=== PATIENT | female | born 2000 | race Caucasian/White ===

== ENCOUNTER 2019-12-17 13:18 | Emergency (ER) | payer MEDICAID, SELFPAY ==
[2019-12-17 13:40] VITALS: BP 119/82; PULSE 112; RESP 18; TEMP 37.3; O2SAT 98; BMI 37.8
--- NOTE | 2019-12-17 14:28 | ED_ITS ---
HPI - General: Chief complaint: OB/Uterine Contractions Stated complaint: UNKNOW WEEK PREG, BLEEDING URGE TO PUSH WHILE PEEI Time Seen by Provider: 12/17/19 14:15 History of Present Illness: HPI Narrative: 19-year-old female. Nurses notes reviewed labs were ordered based on her chief complaints and history provided to the nurse and went to the room to examine the patient she was no longer present on the left the emergency room. She did not tell myself or the nurse evidently that she was leaving nurse did not have an opportunity to provide her AMA paperwork or to tell me that she was leaving. Date of Last Menstrual Period: 09/06/19 [facility] ED PFSH: Social History Smoking and tobacco status: current every day smoker Female Reproductive History: Date of last menstrual period: 09/06/19 Course Vital Signs: Vital signs: Vital Signs Temperature 99.1 F 12/17/19 13:40 Pulse Rate 112 H 12/17/19 13:40 Respiratory Rate 18 12/17/19 13:40 Blood Pressure 119/82 12/17/19 13:40 Pulse Oximetry 98 12/17/19 13:40 Discharge Plan Discharge Patient Disposition: Left Without Being Seen Discharge Date/Time: 12/17/19 14:46 Coding Level of Care Code ED Yeast Cake Cutter for Marquita Beaulieu
== END 2019-12-17 14:46 | disposition left against medical advice (07) ==
LOC: ER 14:51
PROVIDERS: Emergency Provider Family Medicine; PCP Family Medicine
DX: N93.9 Abnormal uterine and vaginal bleeding, unspecified (principal); Z53.21 Procedure and treatment not carried out due to patient leaving prior to being seen by health care provider; F17.210 Nicotine dependence, cigarettes, uncomplicated
CPT/HCPCS: 12345; 99281

== ENCOUNTER 2020-05-11 22:25 | Inpatient (IN) | payer MEDICAID, SELFPAY ==
[2020-05-11 22:25] VITALS: BMI 40.4
[2020-05-11 22:48] VITALS: BP 138/91; PULSE 86
--- NOTE | 2020-05-11 23:07 | US_ITS ---
WS: [id number] US OB limited [id number] REASON FOR EXAM: vaginal bleeding FINDINGS: Limited ultrasound for vaginal bleeding. The placenta is posterior. No evidence of retroplacental hematoma. heart rate 126. Normal amount of amniotic fluid. EGA by femur length 34 weeks 1 day US/US OB limited [id number] IMPRESSION: No significant abnormality identified in the limited examination as above.
--- NOTE | 2020-05-11 23:08 | PC.NURSE ---
Ger with ultrasound called to come in at this time.
[2020-05-11 23:09] VITALS: BP 0/0
[2020-05-11 23:10] VITALS: BP 0/0
[2020-05-11 23:24] VITALS: BP 125/73; PULSE 76
--- NOTE | 2020-05-11 23:25 | PC.NURSE ---
Ger with ultrasound on unit
--- NOTE | 2020-05-11 23:25 | PC.NURSE ---
Dr. Hill at nurses station reviewing strip
[2020-05-11 23:29] LABS: Actim Prom Positive
--- NOTE | 2020-05-11 23:30 | PC.NURSE ---
Dr. Hill at bedside
[2020-05-11 23:36] VITALS: BMI 37.9
[2020-05-11 23:40] VITALS: BP 136/81; PULSE 77
[2020-05-11 23:55] VITALS: BP 138/74; PULSE 68
[2020-05-12] VITALS (36 sets, daily range): BP systolic 0–150; BP diastolic 0–93; PULSE 79–128; RESP 16–20; TEMP 36.8–37.2; O2SAT 80–100
[2020-05-12 00:04] LABS: Amphetamines Screen Urine Negative (Negative); Barbiturates Screen Urine Negative (Negative); Benzodiazepines Screen Urine Negative (Negative); Cocaine Screen Urine Negative (Negative); Opiate Screen Urine Negative (Negative); PCP Screen Urine Negative (Negative); THC Screen Urine Negative (Negative)
[2020-05-12] MEDS: lactated ringers 1,000 ML 999 ML IV (00:05)
--- NOTE | 2020-05-12 00:09 | P.HP_ITS ---
Providers/Chief Complaint Admitting Physician: Bradford Hill MD Primary Care Provider: Bradford Hill MD Chief Complaint: IUP CONTRACTIONS HPI PHOTOGRAPHIC LABORATORY TECHNICIAN History of Present Illness Suzi Dumont is a 20 year old female who is 4 para 3 with an EDC of 06/06/2020. She has had 3 previous sections and was scheduled for section later this month. However, she had intercourse earlier this evening and then began bleeding moderate amount at home around 9 PM. She came to [facility] labor and delivery was complained of bleeding and thinking that water may have been ruptured . Initial evaluation found her to have a little bit of blood but nothing significant but still having some significant pain. She was placed on the monitor and the heart tones have been pretty flat. A recheck found her to have moderate bleeding. [place] [employer] was unsuccessful secondary to the bleeding. Quick ultrasound demonstrated no o bvious abruption and no active bleeding. However there is minimal amniotic fluid with the OBDULIO of 4-5. There is very minimal cervix remaining. Is heart tones are poor with oligohydramnios and a grade 2-3 placenta with bleeding and previous history of section a decision is made made to proceed with section. There is been no fever and no other signs of COVID. She denies any exposure to anyone known to have code however, she has not been tested. We are testing at this time. Present Details : 4 Para: 3 Date of Last Menstrual Period: 09/06/19 Calculated Date of Delivery: 06/12/20 Gestational Age Based on Last Menstrual Period: 35 Review of Systems Const: Denies: fever(s), chills, body aches or diaphoresis Eyes: Denies: change in vision ENMT: Denies: throat pain Card: Denies: chest pain, palpitations or dyspnea on exertion Resp: Denies: dyspnea, productive cough or wheezing GI: Reports: abdominal pain (Some suprapubic pain and some suprapubic pain and back pain.) : Reports: pelvic pain (Suprapubic pain and back pain.); Denies: flank pain Musc: Reports: back pain Neuro: Denies: headache(s), weakness in extremities or sensory changes Psych: Reports: anxiety Medications/Allergies Allergies Allergy/AdvReac Type Severity Reaction Status Date / Time No Known Allergies Allergy Verified 12/17/19 13:44 PFSH PHOTOGRAPHIC LABORATORY TECHNICIAN PFSH: Social History Smoking and tobacco status: current every day smoker Vitals/I&O/Wt Last Vital Signs Pulse 68 05/11/20 23:55 BP 138/74 05/11/20 23:55 Weight last 48 hrs Weight 103.419 kg Physical Exam Const: GENERAL APPEARANCE: cooperative, anxious and well hydrated HENMT: COMMON NORMALS: atraumatic Resp: COMMON NORMALS: normal respiratory effort, No retractions and clear to auscultation bilaterally Cardio: COMMON NORMALS: regular rate and regular rhythm GI: COMMON NORMALS: Normal to inspection, nondistended, normoactive bowel adrian nds present and Soft to palpation; negative for non-tender (Suprapubic tenderness which is mild to moderate.) : OB/EXTERNAL & SPECULUM: Active bleeding present UTERUS PALPATION: Yes Uterus tender (Mild at time of initial examination.) Extremity: COMMON NORMALS: normal to inspection, full ROM, capillary refill normal, no calf tenderness and no pedal edema Neuro: SENSORIUM/ORIENTATION: Yes alert Psych: MOOD & AFFECT: Yes anxious Data : 05/13/20 04:10 05/12/20 08:00 A&P Assessment and plan (1) labor in third trimester with delivery: Patient having bleeding with nonreassuring heart monitor strip and oligohydramnios requiring emergent section. Status: Acute (2) Previous section: Patient had plans for repeat section. Status: Acute Attestations Medical Necessity Statement*: This patient came to the hospital with bleeding and pain. She is admitted to the hospital for section and will require probably greater than 2 midnight hospital stay. Coding Level of Care Code Acute Inside Sales Advertising Executive for [facility] Fwd Exam Comprehensive Diagnoses labor in third trimester with delivery O60.14X0 Previous section Z98.891
--- NOTE | 2020-05-12 00:18 | PC.NURSE ---
Dr. Hernandez at beside
[2020-05-12 00:19] LABS: Basophils % 0.2 %; Eosinophils # 0.2 10^3/uL (0.0-0.8); Eosinophils % 1.4 %; Hemoglobin 7.3 g/dL (11.5-15.3); Lymphocytes # 2.2 10^3/uL (0.8-4.8); Lymphocytes % 17.2 %; Mean Corpuscular HGB Conc 31.7 g/dL (30.0-36.0); Mean Corpuscular Hemoglobin 28.1 pg (28.0-34.0); Mean Corpuscular Volume 88.5 fL (81-99); Mean Platelet Volume 11.2 fL (7.4-10.4); Monocytes # 0.7 10^3/uL (0.2-0.9); Monocytes % 5.9 %; Neutrophils # 9.38 10^3/uL (1.8-7.7); Neutrophils % 74.9 %; Nucleated Red Blood Cells % 0 %; Platelet Count 262 10^3/cmm (130-400); Red Cell Distribution Width 13.1 % (12.1-15.1); White Blood Count 12.5 10^3/uL (4.0-10.0)
--- NOTE | 2020-05-12 00:19 | PC.NURSE ---
Dr. Hernandez orders for patient to be taken to the OR at this time for an emergency
--- NOTE | 2020-05-12 00:20 | PC.NURSE ---
Monitors disconnected and patient wheeled to OR via bed.
[2020-05-12 00:35] LABS: SARS Covid-2 Antigen Negative (Negative)
[2020-05-12 00:35] LABS: Slide Review Slide Review Perform
--- NOTE | 2020-05-12 01:20 | XRR_ITS ---
PROCEDURE INFORMATION: Exam: XR Abdomen, 1 View Exam date and time: 05/12/2020 1:23 AM Age: 20 years old Clinical indication: Screening exam; Post surgical status; Stat , no count prior; Prior surgery; Additional info: Stat c/s TECHNIQUE: Imaging protocol: XR of the abdomen. Views: Frontal supine view of the abdomen. 1 View. COMPARISON: No relevant prior studies available. FINDINGS: Gastrointestinal tract: Normal. No bowel dilation. Bones/joints: Unremarkable. Soft tissues: There is no radiodense foreign body. XR/XR abdomen 1V* [id number] IMPRESSION: No retained instruments.
--- NOTE | 2020-05-12 01:40 | P.ANESASSM_ITS ---
Pre-Anesthetic Assessment Pre-Anesthetic Assessment: Height/Weight: Height 1.65 m Weight 103.419 kg Pulse BP Pulse Ox 68 0/0 87 L 05/11/20 23:55 05/12/20 00:09 05/12/20 00:15 Preop Diagnosis: vaginal bleeding non reassuring FHT Proposed Procedure: emergent c section Was Beta Blanka taken within 24 hours: N/A Last Intake: 16:00 Social: Social History: No tobacco Packs per day: 1 Exam: Pre-Anes Outpt Exam: alert, oriented x 3, clear to auscultation bilaterally and regular rate & rhythm Airway: Submandibular: WNL Cervical ROM: WNL MP: 2 Dentition: Full Additional comments: pt on PCN for bad tooth History/ROS: No significant history except as noted Anesthetic Plan: ASA status: 2E Anesthesia: General Meds/Allergies Current Medications: Current Medications Generic Name Dose Route Start Last Admin Trade Name Freq PRN Reason Stop Dose Admin Lactated Ringer's 1,000 mls @ 999 m ls/hr 05/11/20 23:13 05/12/20 00:05 Lactated Ringers IV 999 mls/hr .Q1H1M PRN Administration resuscitati on PFSH Anesthesia PFSH: Social History Smoking and tobacco status: current every day smoker Female Reproductive History: Date of last menstrual period: 09/06/19 : 4 Data Anesthesia CBC & Chem 7: 05/11/20 23:30 Other Labs: Laboratory Results - last 48 hr 05/11/20 05/11/20 05/11/20 23:06 23:30 23:44 WBC 12.5 H RBC 2.60 L Hgb 7.3 L Hct 23.0 L MCV 88.5 MCH 28.1 MCHC 31.7 RDW 13.1 Plt Count 262 MPV 11.2 H Neut % (Auto) 74.9 Lymph % (Auto) 17.2 Converse % (Auto) 5.9 Eos % (Auto) 1.4 Baso % (Auto) 0.2 Neut # (Auto) 9.38 H Lymph # (Auto) 2.2 Converse # (Auto) 0.7 Eos # (Auto) 0.2 Baso # (Auto) 0.0 Nucleated RBC % (auto) 0 Nucleated RBCs # 0.0 Insulin-like GF I Positive Urine Opiates Screen Negative Ur Barbiturates Screen Negative Ur Phencyclidine Scrn Negative Ur Amphetamines Screen Negative U Benzodiazepines Scrn Negative Urine Cocaine Screen Negative U Marijuana (THC) Screen Negative SARS-CoV-2 Ag (Rapid) 05/12/20 00:01 WBC RBC Hgb Hct MCV MCH MCHC RDW Plt Count MPV Neut % (Auto) Lymph % (Auto) [place] % (Auto) Eos % (Auto) Baso % (Auto) Neut # (Auto) Lymph # (Auto) Converse # (Auto) Eos # (Auto) Baso # (Auto) Nucleated RBC % (auto) Nucleated RBCs # Insulin-like GF I Urine Opiates Screen Ur Barbiturates Screen Ur Phencyclidine Scrn Ur Amphetamines Screen U Benzodiazepines Scrn Urine Cocaine Screen U Marijuana (THC) Screen SARS-CoV-2 Ag (Rapid) Negative Cardiac Studies: No Data to Display
--- NOTE | 2020-05-12 01:55 | PM.OP ---
Operative Report Date of procedure: May 12, 2020 Pre-op Diagnosis: vaginal bleeding, 36-week estimated gestational age, nonreassuring heart tones Post-op diagnosis: other Post-op Diagnosis: In addition to the above, probable placental abruption Procedure Done: Emergent section Specimens removed/disposition: 1. Placenta with umbilical cord delivered intact. 2. weight and Apgars to be determined Pathology: other Pathology: Placenta Surgeon: Alvaro Hernandez Surgery Scheduling Coordinator: Bradford Hill Anesthesia: General Estimated blood loss (mL): 1,000 Urine output (mL): 100 Condition: stable Disposition: floor Brief History: This is a patient of Dr. Hill's who had seen me earlier in her for consultation for a repeat section. She arrived to the hospital this evening complaining of possibly having ruptured membranes and some bleeding. Dr. Hill did an initial evaluation of the patient including an ultrasound. He was concerned about the reduced variability of the heart tones and contacted me to proceed with a section. I immediately came to the hospital and upon arrival the heart tones had suddenly dropped into the 70s. We then moved to a stat . Procedure: The patient was quickly brought back to the operating room where Betadine was quickly wiped across to her abdomen and a sterile drape was placed.. As soon as the patient was intubated, we immediately began the procedure. A lower transverse skin incision was then made with a #10 blade. I then dissected down to the underlying subcutaneous tissue until arriving at the prerectal fascia. There was a fair amount of scar tissue due to the previous c-sections. The fascia was then nicked with the scalpel bilaterally. The fascial incisions were then carried laterally with Davis scissors. Attention was then turned to the superior aspect of the incision which was grasped with kochers and tented up away from the underlying rectus abdominis muscles. The muscles were then dissected away from the fascia manually, and later with Davis scissors. Attention was then turned to the inferior aspect of the incision, and the fascia was dissected away from the underlying muscle in similar fashion. The rectus abdominis muscles were then spread manually. The peritoneum was entered manually. A lower transverse uterine incision was then made with a #10 blade. Upon arriving at the intrauterine cavity, the uterine incision was then extended manually. The infant was noted to be in vertex position. The baby was delivered without difficulty, the cord was cut and clamped, and the baby was immediately handed to the waiting nurses. There was no meconium. There was no nuchal cord. The placenta was removed intact. The uterus was externalized. The intrauterine cavity was cleansed of any remaining debris. The uterine incision was reapproximated in 2 layers. The first layer was performed with 0 Vicryl in a running locked stitch. The second layer was an imbricating stitch also using 0 Vicryl. The uterus was replaced into the abdomen. The peritoneum was then irrigated with warm saline. I reexamined the uterine incision and found it to be hemostatic. The rectus abdominis muscles were then reapproximated using 0 Vicryl in a running stitch. The fascia was then reapproximated using 0 Vicryl in running stitch. Subcutaneous tissue was then reapproximated using 0 Vicryl running stitch. The skin was reapproximated with a running subcuticular using 4-0 Vicryl. Steri-Strips were placed. A sterile dressing was placed. All counts were correct x2. The Mother was in stable condition.
[2020-05-12] MEDS: ketorolac 30 mg/mL INJ IVP ×4 (04:49→22:12)
[2020-05-12] MEDS: ceFAZolin 1,000 MG in sodium chloride 0.9% (plus) 50 ML 100 MG IV (05:47)
--- NOTE | 2020-05-12 07:25 | PC.NURSE ---
Documentation- Triage report and L&D education charted for primary nurse.
[2020-05-12] MEDS: HYDROcodone-acetaminophen 5-325 mg Tablet PO ×2 (07:43→14:02)
--- NOTE | 2020-05-12 07:43 | XR_ITS ---
WS: [id number] XR chest 1V portable [id number] REASON FOR EXAM: chest pain FINDINGS: The heart is at the upper limits of normal in size. Mediastinum is otherwise unremarkable. No active pulmonary parenchymal or pleural disease is noted. Plate and screw fixation of previous mid clavicle fracture. Bony thorax otherwise unremarkable. Chest is relatively unchanged compared to previous study of 06/25/2019. XR/XR chest 1V portable [id number] IMPRESSION: No acute chest abnormality.
--- NOTE | 2020-05-12 07:48 | PC.NURSE ---
0735 Pt called nurse in to room and stated that she was having a stabbing pain with every breath that she took. she stated that she was hurting and that the primary nurse was getting her medication. Vitals obtained and Lung adame sounded clear. Dr. Hill arrived at bedside at 0737 to assess patient.
[2020-05-12] MEDS: docusate sodium 100 mg Capsule PO ×2 (08:11→17:12)
[2020-05-12] MEDS: prenatal vitamin Capsule 1 CAP PO (08:11)
[2020-05-12] MEDS: dextrose 5%-lactated ringers 1,000 ML 125 ML IV ×2 (08:11→17:13)
[2020-05-12] MEDS: ferrous sulfate EC 325 mg Tablet PO ×2 (08:11→17:12)
[2020-05-12] MEDS: hyDROXYzine 25 mg Capsule PO (08:12)
[2020-05-12 08:30] LABS: Alanine Aminotransferase < 5 U/L (0-33); Albumin Level 2.7 g/dL (3.5-5.2); Alkaline Phosphatase 151 IU/L (35-105); Anion Gap 15.3 (5-19); Aspartate Amino Transferase 15 U/L (0-32); Blood Urea Nitrogen 11 mg/dL (6-20); Calcium 8.2 mg/dL (8.5-10.5); Carbon Dioxide 20 mmol/L (22-29); Chloride 104 mmol/L (98-107); Glomerular Filtration Rate 78.3 mL/min (90-130); Glucose 91 mg/dL (65-115); Osmolality Calculated 279 mOsm/kg (285-295); Potassium 4.3 mmol/L (3.5-5.1); Sodium 135 mmol/L (136-145); Total Bilirubin 0.2 mg/dL (0.15-1.2); Total Protein 4.7 g/dL (6.6-8.7)
[2020-05-12] MEDS: pantoprazole 40 mg SDV IVP (08:43)
[2020-05-12 09:30] LABS: Mean Corpuscular HGB Conc 31.2 g/dL (30.0-36.0); Mean Corpuscular Hemoglobin 27.9 pg (28.0-34.0); Mean Corpuscular Volume 89.5 fL (81-99); Mean Platelet Volume 11.3 fL (7.4-10.4); Platelet Count 200 10^3/cmm (130-400); Red Cell Distribution Width 13.2 % (12.1-15.1); White Blood Count 11.3 10^3/uL (4.0-10.0)
[2020-05-12 09:36] LABS: Hemoglobin 5.3 g/dL (11.5-15.3)
--- NOTE | 2020-05-12 09:42 | PC.RESP ---
SMOKING CESSATION INFORMATION SENT TO PATIENT.
[2020-05-12] MEDS: sodium chloride 0.9% (100 ml) 100 ML ×2 (11:20→14:55)
[2020-05-12 19:27] LABS: Hemoglobin 6.7 g/dL (11.5-15.3); Mean Corpuscular HGB Conc 32.7 g/dL (30.0-36.0); Mean Corpuscular Volume 88.7 fL (81-99); Mean Platelet Volume 10.8 fL (7.4-10.4); Platelet Count 184 10^3/cmm (130-400); Red Blood Count 2.31 10^6/uL (4.1-5.3); Red Cell Distribution Width 13.3 % (12.1-15.1); White Blood Count 10.4 10^3/uL (4.0-10.0)
[2020-05-12 19:50] LABS: Hematocrit 20.5 % (37.0-47.0)
[2020-05-12] MEDS: sodium chloride 0.9% 1,000 ML 999 ML IV (20:03)
[2020-05-12 21:01] LABS: Coronavirus Lab Test PTC Negative
[2020-05-12] MEDS: simethicone 80 mg Chew PO (22:12)
[2020-05-13] VITALS (11 sets, daily range): BP systolic 121–148; BP diastolic 82–93; PULSE 92–112; RESP 16–20; TEMP 36.8–37.3; O2SAT 95–99
[2020-05-13] MEDS: HYDROcodone-acetaminophen 5-325 mg Tablet PO ×2 (04:00→08:32)
[2020-05-13] MEDS: dextrose 5%-lactated ringers 1,000 ML 125 ML IV (04:08)
[2020-05-13] MEDS: sodium chloride 0.9% 1,000 ML 999 ML IV (04:08)
[2020-05-13 04:30] LABS: Hematocrit 21.1 % (37.0-47.0); Hemoglobin 6.8 g/dL (11.5-15.3); Mean Corpuscular HGB Conc 32.2 g/dL (30.0-36.0); Mean Corpuscular Hemoglobin 28.5 pg (28.0-34.0); Mean Corpuscular Volume 88.3 fL (81-99); Mean Platelet Volume 10.5 fL (7.4-10.4); Platelet Count 201 10^3/cmm (130-400); Red Blood Count 2.39 10^6/uL (4.1-5.3); Red Cell Distribution Width 13.7 % (12.1-15.1); White Blood Count 8.1 10^3/uL (4.0-10.0)
--- NOTE | 2020-05-13 07:17 | P.PN_ITS ---
INFORMATION SYSTEMS SECURITY ANALYST Subjective Subjective: Interval history: Patient is still pretty sore. The pleuritic chest pain that she was having subcostally yesterday is improved. She did ambulate some yesterday. She denies any significant bleeding. Labor: Station: -1 Amniotic Membrane Status: Unknown Monitor Mode: External Contraction Pattern: Absent Status: Category lll Vitals/I&O/Wt Last Vital Signs Temp 98.6 F 05/12/20 22:15 Pulse 93 05/13/20 01:20 Resp 17 05/13/20 01:20 BP 136/86 05/12/20 22:15 Pulse Ox 95 05/13/20 01:20 05/12/20 05/13/20 05/13/20 22:59 06:59 14:59 Intake Total 1516.55 / 1866.55 1000 / 2866.55 Output Total 425 / 725 170 / 895 Balance 1091.55 / 1141.55 830 / 1971.55 Weight last 48 hrs Weight 103.419 kg Weight 103.419 kg Physical Exam Const: COMMON NORMALS: no acute distress Resp: COMMON NORMALS: normal respiratory effort, No retractions and clear to auscultation bilaterally AUSCULTATION: clear to auscultation bilaterally Cardio: COMMON NORMALS: regular rate and regular rhythm RATE: regular rate RHYTHM: regular rhythm GI: COMMON NORMALS: Soft to palpation; negative for non-tender (Generalized abdominal pain. There are bowel sounds present.) PALPATION: Yes Soft to palpation Neuro: COMMON NORMALS: no focal motor deficits and no sensory deficits noted Psych: COMMON NORMALS: mental status grossly normal (She is obviously depressed about the situation.) Urinary Catheter Management^: Snowden: Cath Placed During This Visit: no Reason for Continuing Indwelling Catheter: Required Immobilization for Trauma or Surgery or Anesthesia Data : 05/13/20 04:10 05/12/20 08:00 A&P Assessment and plan (1) Status post emergency section: Patient had an emergency repeat section secondary to distress at [address] Hernandez is following for postop problems. She is moderately anemic, but hemoglobin is stable this morning. We will continue post orders per Dr. Hernandez. Status: Acute (2) demise > 22 weeks, delivered, current hospitalization: was delivered by stat section with Apgars of 0 and 0 and failed resuscitation. We were able to obtain a pulse on baby for short time but no respiratory effort and no tone. I reiterated to the patient that what happened to the baby was not this patient's fault. I allowed her the opportunity ask questions and have told her I would be available in the office if she has questions or concerns. Status: Acute Attestations Medical Necessity Statement*: This patient is and post . If she continues to do well, she may possibly be able to be discharged home this evening. That will be up to the surgeon. She may require 1 more midnight hospital stay. If discharged she will follow-up with this physician in about 6 weeks and as needed prior to that. Coding Level of Care Code Acute Research Programmer for Marquita Beaulieu Diagnoses Status post emergency section Z98.891 demise > 22 weeks, delivered, current hospitalization O36.4XX0
--- NOTE | 2020-05-13 08:18 | PC.NURSE ---
Pts. room is very warm and pt. has K-Pad on her lower abdomen.
--- NOTE | 2020-05-13 08:22 | PC.NURSE ---
Pt. being turned in bed
[2020-05-13] MEDS: ferrous sulfate EC 325 mg Tablet PO ×2 (08:32→17:46)
[2020-05-13] MEDS: docusate sodium 100 mg Capsule PO ×2 (08:32→17:46)
[2020-05-13] MEDS: prenatal vitamin Capsule 1 CAP PO (08:32)
--- NOTE | 2020-05-13 11:29 | ANE.PACU2 ---
Inpatient post-anesthesia follow up: Airway intact: Yes Vital signs: Temperature 98.6 F Pulse Rate 100 Respiratory Rate 16 Blood Pressure 136/86 Pulse Oximetry 95 Oxygen Delivery Me thod Room Air Oxygen Flow Rate Fraction of Inspir ed Oxygen Hydration adequate: Yes Nausea and vomiting: No Pain level: 2 Mental status: Baseline
[2020-05-13] MEDS: ibuprofen 800 mg tablet PO ×2 (11:39→15:24)
--- NOTE | 2020-05-13 12:00 | PC.NURSE ---
Vital signs obtained after patient had been up in bathroom, changed gown, removed catheter, and bedding changed.
[2020-05-13] MEDS: pantoprazole DR 40 mg Tablet PO (17:46)
--- NOTE | 2020-05-13 17:48 | PM.OBGYDC ---
Discharge Providers FIRE DEPARTMENT BATTALION CHIEF Date of Admission: 05/11/20 22:25 Date of Discharge: 05/13/20 Attending Provider at Admission: Bradford Hill MD Attending Provider at Discharge: Alvaro Hernandez MD Primary Care Provider: Bradford Hill MD Diagnoses at Discharge Discharge Diagnosis (1) Status post emergency section: Status: Acute (2) demise > 22 weeks, delivered, current hospitalization: Status: Acute (3) Previous section: Status: Acute (4) labor in third trimester with delivery: Status: Acute Reason for Visit Reason for Visit: IUP CONTRACTIONS Hospital Course Hospital Course: The patient is a 4 para 3 who presented to the hospital 36 weeks with a complaint of vaginal bleeding and possible rupture of membranes. She had initial evaluation including ultrasound to evaluate for an abruption. After the initial evaluation, the heart tones had an significant deceleration, and a stat was called. The patient was then brought back to the operating room where she was given general anesthesia, and a section was performed. The was passed to a team of healthcare providers who cared for the infant with aggressive resuscitation. In spite of their efforts. The infant ended up dying. The mother's course was remarkable for having a hemoglobin that dropped from 7.3 preop -5.3 postop. She did receive 2 units of blood, and her hemoglobin increased to 6.7. She had significant pain including chest pain postoperatively that resolved by the first postoperative day. Her vaginal bleeding was scant. She passed gas in the first postoperative day. She was advanced to a full diet. She was able to shower and ambulate appropriately. I sat down to talk with him multiple times to talk with him regarding circumstances surrounding the and the of their child. They had no further questions. She will be discharged home this evening. Information Peripartum Data: Infant Delivery Method: Section Physical Exam Narrative: EXAM NARRATIVE: She is in no acute distress Lungs are clear auscultation bilaterally Her heart has a regular rate and rhythm Her fundus is below the umbilicus and firm Her dressing is clean, dry and intact Her extremities have trace edema Urinary Catheter Management^: Snowden: Cath Placed During This Visit: yes, but has since been removed by the nurse Reason for Continuing Indwelling Catheter: Decision to DC Catheter Date Urinary Catheter Removed: 05/13/20 Time Urinary Catheter Discontinued: 12:00 Discharge Data Data Completed and Pending: Completed Studies During Hospitalization Category Date Time Status XR abdomen 1V* 74 018 Stat Exams 05/12/20 01:20 Completed XR chest 1V radha ble [id number] Routine Exams 05/12/20 07:43 Completed US OB limited 768 15 Stat Ultrasound 05/11/20 23:07 Completed Pending at discharge Category Date Time Status Pathology: Surgic al [PTH] Routine Pth 05/12/20 08:35 Received Labs from last 24 hours 05/13/20 05/12/20 05/12/20 04:10 19:20 00:01 WBC 8.1 10.4 H RBC 2.39 L 2.31 L Hgb 6.8 L 6.7 L Hct 21.1 L 20.5 L* MCV 88.3 88.7 MCH 28.5 29.0 MCHC 32.2 32.7 RDW 13.7 13.3 Plt Count 201 184 MPV 10.5 H 10.8 H Nasal/Oral COVID-1 9 PCR Negative Vitals: Last Vital Signs Temp 98.3 F 05/13/20 15:00 Pulse 101 H 05/13/20 15:00 Resp 16 05/13/20 15:00 BP 128/82 05/13/20 15:00 Pulse Ox 99 05/13/20 15:00 Discharge Plan Discharge Patient Disposition: Home Condition: Stable Prescriptions: New ibuprofen 800 mg Tablet 800 mg PO TID Qty: 45 RF: 0 hydrocodone-acetaminophen 5-325 mg Tablet 1 tab PO Q6H PRN (Reason: Moderate To Severe Pain) Qty: 28 RF: 0 ferrous sulfate 325 mg (65 mg iron) Tablet,Delayed Release (Dr/Ec) 325 mg PO BIDWM Qty: 60 RF: 3 -U 106.5-1 mg Capsule 1 cap PO BREAKFAST Qty: 90 RF: 0 Discharge Orders: Discharge Order (Routine); Ordered 05/13/20 Ordered By: Alvaro Hernandez Referrals: Alvaro Hernandez MD [Physician] - 05/19/20 1:00 pm (Please keep scheduled appointment on May 19, 2020 at 1:00 PM for incision check up. Please arrive early to your appointment to have a CBC drawn at [facility] before your appointment with Dr. Hernandez.) Discharge Diet: Usual diet Discharge Activity: Limit activity as instructed Patient Instructions: Loss of a child (GEN), Stillbirth (GEN), OB - Mary/Jeffrey, OB Discharge Report, OB Food/Drug Interaction Guide, OB Home Care Instructions, OB Care at Home, OB Home Care, OB Proud Parent Packet Activity Restrictions/Additional Instructions: The patient needs to obtain a CBC at Dr. Hernandez's office prior to her visit with him. Discharge Attestations FIRE DEPARTMENT BATTALION CHIEF Time Spent in Discharge Care*: greater than 30 min Status at Discharge: Overall status at discharge: patient is progressing back to baseline Coding Level of Care Code Acute Regulatory Affairs Portfolio Leader for [facility] Fwd Diagnoses Status post emergency section Z98.891 demise > 22 weeks, delivered, current hospitalization O36.4XX0 Previous section Z98.891 labor in third trimester with delivery O60.14X0
== END 2020-05-13 18:15 | disposition home or self-care (01) | DRG 786 ==
PROVIDERS: Admitting Provider Family Medicine; PCP Family Medicine; Visit Provider Family Medicine
PROC: (CPT 59514; principal; 2020-05-11 00:20)
DX: O60.14X0 Preterm labor third trimester with preterm delivery third trimester, not applicable or unspecified (principal); O45.93 Premature separation of placenta, unspecified, third trimester; O41.03X0 Oligohydramnios, third trimester, not applicable or unspecified; Z3A.36 36 weeks gestation of pregnancy; Z37.1 Single stillbirth; O34.219 Maternal care for unspecified type scar from previous cesarean delivery; O99.334 Smoking (tobacco) complicating childbirth; F17.210 Nicotine dependence, cigarettes, uncomplicated; O76 Abnormality in fetal heart rate and rhythm complicating labor and delivery; O99.02 Anemia complicating childbirth; D64.9 Anemia, unspecified
CPT/HCPCS: 12345; 36415; 36430; 59025; 71045; 74018; 76815; 80053; 80306; 84112; 85025; 85027; 86850; 86900; 86920; 87426; 87635; 88307; 96375; 99211; C9113; G0378; J0171; J0330; J0690; J1170; J1885; J2370; J2405; J2704; J2710; J3010; J3490; J7030; P9016

== ENCOUNTER → 2020-11-03 13:22 | Outpatient (BNVA) | payer MEDICAID, SELFPAY | PROVIDERS: PCP Family Medicine; Visit Provider Obstetrics & Gynecology | DX: Z32.00 Encounter for pregnancy test, result unknown (principal) | CPT/HCPCS: 81025 ==

== ENCOUNTER → 2020-11-23 13:00 | Outpatient (BNVA) | payer MEDICAID, SELFPAY | PROVIDERS: PCP Family Medicine; Visit Provider Obstetrics & Gynecology | DX: O09.899 Supervision of other high risk pregnancies, unspecified trimester (principal); O99.211 Obesity complicating pregnancy, first trimester | CPT/HCPCS: 80307; 81000; 82950; 84443; 85027; 86592; 86762; 86803; 86850; 86900; 87086; 87340 ==

== ENCOUNTER → 2020-11-30 12:20 | Outpatient (BNVA) | payer MEDICAID, SELFPAY | PROVIDERS: PCP Family Medicine; Visit Provider Obstetrics & Gynecology | DX: Z12.4 Encounter for screening for malignant neoplasm of cervix (principal); O09.899 Supervision of other high risk pregnancies, unspecified trimester; O34.219 Maternal care for unspecified type scar from previous cesarean delivery; Z87.59 Personal history of other complications of pregnancy, childbirth and the puerperium; O99.331 Smoking (tobacco) complicating pregnancy, first trimester; O99.211 Obesity complicating pregnancy, first trimester; O99.019 Anemia complicating pregnancy, unspecified trimester | CPT/HCPCS: 81000; 87491; 87591; 88175 ==

== ENCOUNTER → 2021-01-05 14:50 | Outpatient (BNVA) | payer MEDICAID, SELFPAY | PROVIDERS: PCP Family Medicine; Visit Provider Nurse Practitioner Women's Health | DX: O09.899 Supervision of other high risk pregnancies, unspecified trimester (principal); O99.019 Anemia complicating pregnancy, unspecified trimester; D64.9 Anemia, unspecified; Z3A.00 Weeks of gestation of pregnancy not specified | CPT/HCPCS: 80307; 81000 ==

== ENCOUNTER → 2021-02-02 12:51 | Outpatient (BNVA) | payer MEDICAID, SELFPAY | PROVIDERS: PCP Family Medicine; Visit Provider Obstetrics & Gynecology | DX: O09.899 Supervision of other high risk pregnancies, unspecified trimester (principal); O99.019 Anemia complicating pregnancy, unspecified trimester; O99.211 Obesity complicating pregnancy, first trimester | CPT/HCPCS: 80053; 80307; 81000; 82570; 82607; 82728; 82746; 83550; 84156; 85025; 87806 ==

== ENCOUNTER → 2021-02-18 14:45 | Outpatient (BNVA) | payer MEDICAID, SELFPAY | PROVIDERS: PCP Family Medicine; Visit Provider Emergency Medicine | DX: Z20.822 Contact with and (suspected) exposure to COVID-19 (principal) | CPT/HCPCS: 87635 ==

== ENCOUNTER 2021-03-16 09:25 | Outpatient (CLI) | payer MEDICAID, SELFPAY ==
--- NOTE | 2021-03-16 11:04 | ECG_ITS ---
[facility] Test Date: 2021-03-16 Pat Name: Suzi Dumont Department: Room: Gender: Female Hydrologic Engineer: : 2000 Requested By: Zaynab Kim Order Number: [id number] Vidal MD: Savita Romero M.D. Measurements Intervals [place] Rate: 91 P: 29 OK: 200 QRS: 21 QRSD: 82 T: -1 QT: 371 QTc: 459 Interpretive Statements SINUS RHYTHM POSSIBLE LEFT ATRIAL ENLARGEMENT [-0.1mV P WAVE IN V1/V2] NONSPECIFIC T-WAVE ABNORMALITY Compared to ECG 06/25/2019 00:42:05 T-wave abnormality now present Electronically Signed On 03-17-2021 10:01:39 CDT by Savita Romero M.D. [email or web address]
== END 2021-03-16 09:26 | disposition home or self-care (01) ==
PROVIDERS: PCP Obstetrics & Gynecology; Visit Provider Obstetrics & Gynecology
DX: O99.211 Obesity complicating pregnancy, first trimester (principal)
CPT/HCPCS: 81000; 82607; 82950; 85027; 87086; 93005

== ENCOUNTER → 2021-04-04 09:21 | Outpatient (BNVA) | payer MEDICAID, SELFPAY | PROVIDERS: PCP Obstetrics & Gynecology; Visit Provider Obstetrics & Gynecology | DX: Z34.90 Encounter for supervision of normal pregnancy, unspecified, unspecified trimester (principal); R82.90 Unspecified abnormal findings in urine | CPT/HCPCS: 81000; 87086 ==

== ENCOUNTER 2021-04-19 13:15 | Outpatient (CLI) | payer MEDICAID, SELFPAY ==
[2021-04-19] VITALS (11 sets, daily range): BP systolic 99–117; BP diastolic 54–68; PULSE 81–97; RESP 17; BMI 41.5
--- NOTE | 2021-04-19 13:53 | US_ITS ---
WS: [id number] ULTRASOUND OB FOCUSED HISTORY: abdominal pain, spotting COMPARISON: 11/16/2020 Single intrauterine gestation iis present in vertex presentation. Cervix is closed at 4.5 cm in lengt h. Placenta is anterior with no previa or abruption. Placenta grade 1. Amniotic fluid index: 12.4 cm. Largest vertical pocket 4.3 cm. heart rate at 141 BPM. US/US OB limited [id number] IMPRESSION: 1. Closed cervix normal length of 4.5 cm. 2. Normal cardiac activity. 3. Normal amniotic fluid index.
[2021-04-19 14:22] LABS: Bilirubin Urine Neg (Negative); Blood Urine Neg (Negative); Glucose Urine UA Norm (Normal); Ketones Urine Negative (Negative); Leukocyte Esterase Urine Negative (Negative); Nitrate Urine Negative (Negative); Protein Urine Neg (Negative); Specific Gravity, Urine 1.015 (1.005-1.030); Sulfosalicylic Acid Urine Negative (Negative); Urine Appearance Hazy (CLEAR); Urine Color Yellow (Yellow); Urobilinogen Urine 1 mg/dL (Negative); pH Urine 9 (5-7)
[2021-04-19 14:36] LABS: Add Urine Culture? Yes; Amorphous Sediment Urine 3+ /hpf; Bacteria Urine 2+ /hpf; Mucus Urine 1+ /hpf; RBC Urine 0-4 /hpf (0-2); WBC Urine 0-4 /hpf (0-5)
== END 2021-04-19 15:48 | disposition home or self-care (01) ==
LOC: OPOB 13:20 → OBGYN 13:21
PROVIDERS: PCP Obstetrics & Gynecology; Visit Provider Obstetrics & Gynecology
DX: O46.90 Antepartum hemorrhage, unspecified, unspecified trimester (principal); Z3A.00 Weeks of gestation of pregnancy not specified; R10.9 Unspecified abdominal pain
CPT/HCPCS: 59025; 76815; 81001; 87086; 99211

== ENCOUNTER → 2021-05-18 12:59 | Outpatient (BNVA) | payer MEDICAID, SELFPAY | PROVIDERS: PCP Obstetrics & Gynecology; Visit Provider Nurse Practitioner Women's Health | DX: Z11.52 Encounter for screening for COVID-19 (principal); Z20.822 Contact with and (suspected) exposure to COVID-19 | CPT/HCPCS: 87635 ==

== ENCOUNTER 2024-10-17 23:58 | Emergency (ER) | payer SELFPAY ==
[2024-10-18] VITALS: BP 147/107; PULSE 100; RESP 20; TEMP 37.4; O2SAT 97; BMI 26.6
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
[2024-10-18] MEDS: ondansetron 2 mg/ML SDV 2 mL 4 MG IVP (00:10)
[2024-10-18] MEDS: HYDROmorphone 0.5 MG/0.5 ML INJ 1 MG IVP ×2 (00:11→02:40)
[2024-10-18] MEDS: tetanus-dipt-pertussis 0.5 mL SDV IM (00:15)
[2024-10-18] MEDS: ceFAZolin 2,000 mg SDV 2000 MG IVP (00:23)
[2024-10-18 00:37] VITALS: BP 131/83; PULSE 101; O2SAT 96
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
[2024-10-18 00:56] LABS: Basophils # 0.1 10^3/uL (0.0-0.1); Basophils % 0.3 %; Lymphocytes # 1.6 10^3/uL (0.8-4.8); Lymphocytes % 6.5 %; Mean Corpuscular HGB Conc 31.1 g/dL (30-55); Mean Corpuscular Hemoglobin 25.9 pg (27-33); Mean Corpuscular Volume 83.1 fl (85-98); Monocytes # 1.7 10^3/uL (0.2-0.9); Monocytes % 6.7 %; Neutrophils # 21.41 10^3/uL (1.8-7.7); Neutrophils % 85.7 %; Nucleated Red Blood Cells % 0 %; Platelet Count 355 10^3/cmm (157-399); Red Blood Count 4.21 10^6/uL (3.85-5.65); White Blood Count 24.98 10^3/uL (3.29-11.43)
[2024-10-18] MEDS: iohexol 350 mg/mL 500 mL Btl (per mL) IV (01:10)
[2024-10-18 01:13] LABS: Alanine Aminotransferase 53 U/L (0-33); Albumin Level 3.9 g/dL (3.5-5.2); Alkaline Phosphatase 83 U/L (35-105); Aspartate Amino Transferase 93 U/L (0-32); Blood Urea Nitrogen 17 mg/dL (6-20); Calcium 8.6 mg/dL (8.5-10.5); Carbon Dioxide 17 mmol/L (22-29); Chloride 103 mmol/L (98-107); Globulin 3.1 g/dL (1.3-4.6); Glomerular Filtration Rate 101.1 mL/min (90-130); Glucose 104 mg/dL (65-115); Lactic Sepsis W/Reflex 3.1 mmol/L (0.5-2.2); Osmolality Calculated 282 mOsm/kg (285-295); Sodium 135 mmol/L (136-145); Total Bilirubin 0.2 mg/dL (0.15-1.2)
[2024-10-18 01:14] LABS: Anion Gap 18.4 (5-19); Potassium 3.4 mmol/L (3.5-5.1)
[2024-10-18 01:37] VITALS: BP 137/88; PULSE 85; RESP 18; O2SAT 97
[2024-10-18 02:00] VITALS: BP 128/81; PULSE 82; O2SAT 98
[2024-10-18 02:24] LABS: HCG, Serum Qual Negative (Negative)
[2024-10-18 02:37] LABS: Reflex Lactate Order REFLEX LACTIC ORDERD
[2024-10-18 02:49] VITALS: BP 129/88; PULSE 100; O2SAT 91
[2024-10-18 03:16] VITALS: BP 110/88; PULSE 101; RESP 18; O2SAT 99
== END 2024-10-18 03:18 | disposition short-term general hospital (02) ==
PROVIDERS: Emergency Medicine; Emergency Provider Emergency Medicine
DX: S12.600A Unspecified displaced fracture of seventh cervical vertebra, initial encounter for closed fracture (principal); S02.113A Unspecified occipital condyle fracture, initial encounter for closed fracture; X37.1XXA Tornado, initial encounter; Z23 Encounter for immunization; S09.90XA Unspecified injury of head, initial encounter
CPT/HCPCS: 36415; 51702; 70450; 70486; 71260; 72125; 73030; 74177; 80053; 83605; 84703; 85025; 90471; 90715; 96374; 96375; 96376; 99285; 99291; J0690; J1171; J2405